=== PATIENT | male | born 1955 | race Caucasian/White ===

== ENCOUNTER → 2024-01-18 06:25 | Outpatient (REF) | payer OTHER, MEDICARE, SELFPAY ==
[2024-01-18 08:35] LABS: ALT (SGPT) 13 U/L (0-50); AST (SGOT) 22 U/L (17-59); Albumin 4.4 g/dl (3.5-5.0); Alkaline Phosphatase 58 U/L (38-126); Blood Urea Nitrogen 18 mg/dl (9-20); Calcium 10.7 mg/dl (8.4-10.2); Carbon Dioxide 24 mmol/L (22-30); Chloride 104 mmol/L (98-107); Glucose 179 mg/dl (70-99); Potassium 4.3 mmol/L (3.5-5.1); Sodium 140 mmol/L (135-145); Total Bilirubin 1.2 mg/dl (0.2-1.3); Total Protein 7.5 g/dl (6.3-8.2); eGFR > 60.00
[2024-01-18 08:42] LABS: Microalbumin, Random Urine < 0.6 mg/dl (0.6-1.7)
[2024-01-18 10:16] LABS: Glycohemoglobin (HgbA1c) 7.3 % (4.0-5.6)
== END ==
LOC: REG 06:25
PROVIDERS: ATTENDING PHYSICIAN Internal Medicine
DX: E03.9 Hypothyroidism, unspecified (principal); I10 Essential (primary) hypertension; E78.2 Mixed hyperlipidemia; E11.65 Type 2 diabetes mellitus with hyperglycemia
CPT/HCPCS: 36415; 80053; 82043; 82570; 83036; 84443

== ENCOUNTER → 2024-05-30 06:25 | Outpatient (REF) | payer OTHER, SELFPAY ==
[2024-05-30 06:52] LABS: Ionized Calcium 1.13 mMOL/L (1.15-1.33)
[2024-05-30 07:26] LABS: ALT (SGPT) 17 U/L (0-50); AST (SGOT) 22 U/L (17-59); Albumin 4.3 g/dl (3.5-5.0); Alkaline Phosphatase 44 U/L (38-126); Blood Urea Nitrogen 20 mg/dl (9-20); Calcium 9.4 mg/dl (8.4-10.2); Carbon Dioxide 27 mmol/L (22-30); Chloride 104 mmol/L (98-107); Glucose 184 mg/dl (70-99); Potassium 4.9 mmol/L (3.5-5.1); Sodium 141 mmol/L (135-145); Total Bilirubin 0.7 mg/dl (0.2-1.3); Total Protein 6.9 g/dl (6.3-8.2); eGFR > 60.00
[2024-05-30 07:39] LABS: Vitamin D, 25-OH*** 44.6 ng/mL (30-80)
[2024-05-30 07:53] LABS: TSH Reflex To Free T4 2.54 uIU/ml (0.47-4.68)
[2024-05-30 09:10] LABS: Glycohemoglobin (HgbA1c) 7.3 % (4.0-5.6)
== END ==
LOC: REG 06:25
PROVIDERS: ATTENDING PHYSICIAN Internal Medicine
DX: I10 Essential (primary) hypertension (principal); E78.2 Mixed hyperlipidemia; E03.9 Hypothyroidism, unspecified; E83.52 Hypercalcemia
CPT/HCPCS: 36415; 80053; 82306; 82330; 83036; 83970; 84443

== ENCOUNTER → 2024-09-28 06:21 | Outpatient (REF) | payer OTHER, SELFPAY ==
[2024-09-28 09:03] LABS: ALT (SGPT) 14 U/L (0-50); AST (SGOT) 21 U/L (17-59); Albumin 4.6 g/dl (3.5-5.0); Alkaline Phosphatase 50 U/L (38-126); Blood Urea Nitrogen 19 mg/dl (9-20); Calcium 9.8 mg/dl (8.4-10.2); Carbon Dioxide 27 mmol/L (22-30); Chloride 100 mmol/L (98-107); Glucose 170 mg/dl (70-99); HDL Cholesterol 49 mg/dl; LDL Cholesterol, Calculated 64 mg/dl; Potassium 4.7 mmol/L (3.5-5.1); Sodium 139 mmol/L (135-145); Total Cholesterol 140 mg/dl (50-199); Total Protein 7.1 g/dl (6.3-8.2); Triglyceride 139 mg/dl (10-149); Very Low Density Lipoprotein 27 mg/dl (0-30); eGFR > 60.00
[2024-09-28 09:14] LABS: LDL Cholesterol, Direct 59 mg/dl
[2024-09-28 09:33] LABS: TSH 4.64 uIU/ml (0.47-4.68)
[2024-09-28 09:41] LABS: Glycohemoglobin (HgbA1c) 7.2 % (4.0-5.6)
== END ==
LOC: REG 06:21
PROVIDERS: ATTENDING PHYSICIAN Internal Medicine
DX: E11.65 Type 2 diabetes mellitus with hyperglycemia (principal); E78.2 Mixed hyperlipidemia; I10 Essential (primary) hypertension; E03.9 Hypothyroidism, unspecified; E83.52 Hypercalcemia
CPT/HCPCS: 36415; 80053; 80061; 83036; 83721; 84443